=== PATIENT | male | born 1955 | race Caucasian/White ===

== ENCOUNTER → 2016-11-01 | Outpatient (CLI) | payer MEDICAID, MEDICARE | END | disposition home or self-care (01) | LOC: YCFC.O 11:09 | PROVIDERS: ATTEND Nurse Practitioner Family | DX: E78.5 Hyperlipidemia, unspecified (principal); Z12.5 Encounter for screening for malignant neoplasm of prostate; E11.9 Type 2 diabetes mellitus without complications; I42.9 Cardiomyopathy, unspecified | CPT/HCPCS: 36415; 80053; 80061; 82043; 82570; 83036; 83880; 84403; 85025; G0103 ==

== ENCOUNTER → 2017-06-11 | Outpatient (CLI) | payer MEDICARE | LOC: YCFC.O 11:54 | PROVIDERS: ATTEND Nurse Practitioner Family | DX: E11.8 Type 2 diabetes mellitus with unspecified complications (principal); I10 Essential (primary) hypertension; E78.2 Mixed hyperlipidemia ==

== ENCOUNTER → 2018-05-21 | Outpatient (CLI) | payer MEDICARE | LOC: YCFC.O 16:01 | PROVIDERS: ATTEND Nurse Practitioner Family | DX: E11.8 Type 2 diabetes mellitus with unspecified complications (principal); I10 Essential (primary) hypertension; E78.2 Mixed hyperlipidemia; Z12.5 Encounter for screening for malignant neoplasm of prostate | CPT/HCPCS: 36415; 80053; 80061; 83036; 85025; G0103 ==

== ENCOUNTER → 2019-08-10 | Outpatient (CLI) | payer MEDICARE | LOC: YCFC.O 11:47 | PROVIDERS: ATTEND Family Medicine | DX: I10 Essential (primary) hypertension (principal); E11.8 Type 2 diabetes mellitus with unspecified complications; E78.5 Hyperlipidemia, unspecified; Z12.5 Encounter for screening for malignant neoplasm of prostate; R53.83 Other fatigue | CPT/HCPCS: 36415; 80053; 80061; 83036; 84443; 85025; G0103 ==

== ENCOUNTER → 2019-08-14 | Outpatient (CLI) | payer MEDICARE | LOC: YCFC.O 15:05 | PROVIDERS: ATTEND Family Medicine | DX: I10 Essential (primary) hypertension (principal) ==

== ENCOUNTER 2019-10-16 05:46 | Day surgery (SDC) | payer MEDICARE, OTHER ==
[2019-10-16] MEDS ORDERED: LACTATED RINGERS 1,000 ML ONE (06:54)
[2019-10-16 14:22] VITALS: BP 126/71; TEMP 98.3; O2SAT 95
[2019-10-16] MEDS ORDERED: fentaNYL CITRATE INJ 50 MCG/ML AMP ONE (14:22)
[2019-10-16] MEDS ORDERED: MIDAZOLAM INJ 2 MG/2 ML VIAL ONE (14:22)
== END 2019-10-16 14:49 | disposition home or self-care (01) ==
LOC: AMB 05:46
PROVIDERS: ATTEND Surgery
DX: R19.5 Other fecal abnormalities (principal); E11.9 Type 2 diabetes mellitus without complications; I10 Essential (primary) hypertension; E78.00 Pure hypercholesterolemia, unspecified; Z88.5 Allergy status to narcotic agent; Z79.899 Other long term (current) drug therapy; Z79.82 Long term (current) use of aspirin; Z79.84 Long term (current) use of oral hypoglycemic drugs; Z53.09 Procedure and treatment not carried out because of other contraindication
CPT/HCPCS: 36416; 82948; J7120

== ENCOUNTER → 2019-11-09 | Outpatient (CLI) | payer MEDICARE, OTHER | LOC: LAB.O 11:23 | PROVIDERS: ATTEND Family Medicine | DX: E11.9 Type 2 diabetes mellitus without complications (principal) ==

== ENCOUNTER 2019-12-24 05:22 | Day surgery (SDC) | payer MEDICARE, OTHER ==
[2019-12-24] MEDS ORDERED: LACTATED RINGERS 1,000 ML ONE (06:32)
[2019-12-24] MEDS ORDERED: PROPOFOL 200 MG/20 ML VIAL IV ONE (07:00)
[2019-12-24] MEDS ORDERED: LIDOCAINE 1% 10 ML VIAL INJ ONE (07:00)
[2019-12-24 08:00] VITALS: BP 141/73; TEMP 99.3; O2SAT 93
--- NOTE | 2019-12-24 09:14 | OP ---
DATE OF PROCEDURE: 12/24/19 PREOPERATIVE DIAGNOSIS: 1. Positive Cologuard. POSTOPERATIVE DIAGNOSIS: 1. Colonic polyps x2. PROCEDURE: 1. Colonoscopy. SURGEON: Vega Dupree MD ANESTHESIA: General. PROCEDURE: In the lateral position, general anesthesia was induced. Digital rectal exam was normal. The colonoscope was inserted and passed to the cecum. There was an adequate prep with a lot of fluid that was removed to see adequately. There was one polyp in the mid cecum itself. This was just 2 mm and excised, maybe 2.2 mm. Upon further withdrawal, the mucosal surfaces were normal. We found one more small polyp on a fold at 25 cm. There was no evidence of bleeding site. Retroflexion revealed some non-bleeding internal hemorrhoids, uncomplicated. The colon was desufflated. The scope was removed. The patient tolerated the procedure and was taken to Recovery to be discharged. #[id number] cc: BELLO Plascencia
== END 2019-12-24 09:53 | disposition home or self-care (01) ==
LOC: AMB 05:22
PROVIDERS: ATTEND Surgery
DX: R19.5 Other fecal abnormalities (principal); D12.0 Benign neoplasm of cecum; K63.5 Polyp of colon; K64.8 Other hemorrhoids; E11.9 Type 2 diabetes mellitus without complications; I10 Essential (primary) hypertension; E78.00 Pure hypercholesterolemia, unspecified; I25.10 Atherosclerotic heart disease of native coronary artery without angina pectoris; E66.9 Obesity, unspecified; F17.200 Nicotine dependence, unspecified, uncomplicated; Z79.899 Other long term (current) drug therapy; Z88.5 Allergy status to narcotic agent; Z79.82 Long term (current) use of aspirin; Z79.84 Long term (current) use of oral hypoglycemic drugs; Z86.73 Personal history of transient ischemic attack (TIA), and cerebral infarction without residual deficits
CPT/HCPCS: 00811; 45380; 82948; 88305; J3490; J7120

== ENCOUNTER → 2020-02-09 | Outpatient (CLI) | payer MEDICARE, OTHER | LOC: YCFC.O 11:54 | PROVIDERS: ATTEND Family Medicine | DX: E11.9 Type 2 diabetes mellitus without complications (principal) ==

== ENCOUNTER → 2020-05-06 | Outpatient (CLI) | payer MEDICARE, OTHER | LOC: YCFC.O 09:10 | PROVIDERS: ATTEND Family Medicine | DX: E11.9 Type 2 diabetes mellitus without complications (principal) ==